=== PATIENT | male | born 1985 | race African-American/Black ===

== ENCOUNTER 2021-05-19 16:54 | Emergency (ER) | payer OTHER ==
[2021-05-19 17:52] VITALS: BP 132/43; PULSE 64; TEMP 97.8; BMI 26.4
== END 2021-05-19 18:46 | disposition home or self-care (01) ==
LOC: JER 16:54
DX: R05.9 Cough, unspecified (principal); Z20.822 Contact with and (suspected) exposure to COVID-19
CPT/HCPCS: 99283-25; C9803; U0003; U0005